=== PATIENT | male | born 1980 | race Caucasian/White ===

== ENCOUNTER 2021-02-19 16:19 | Emergency (ER) | payer SELFPAY ==
[~2021-02-19] VITALS: Ht 165.1 cm; Wt 63.5 kg
[2021-02-19] MEDS ORDERED: morphine INJ 10 MG/ML 1ML (SYR OR VIAL) IVP STA (16:24)
[2021-02-19 16:33] LABS: BASOPHILS % (AUTO) 0 % (0-10); EOSINOPHILS # (AUTO) 0.1 10^3/uL (0.0-0.3); EOSINOPHILS % (AUTO) 2 % (0-10); HEMATOCRIT 41 % (40-54); HEMOGLOBIN 14.2 g/dL (13.3-17.7); LYMPHOCYTES # (AUTO) 1.8 10^3/uL (1.0-4.0); LYMPHOCYTES % (AUTO) 31 % (12-44); MEAN CORPUSCULAR HEMOGLOBIN 30 pg (25-34); MEAN CORPUSCULAR HGB CONC 34 g/dL (32-36); MEAN CORPUSCULAR VOLUME 89 fL (80-99); MEAN PLATELET VOLUME 9.8 fL (9.0-12.2); MONOCYTES # (AUTO) 0.6 10^3/uL (0.0-1.0); MONOCYTES % (AUTO) 11 % (0-12); NEUTROPHILS # (AUTO) 3.3 10^3/uL (1.8-7.8); NEUTROPHILS % (AUTO) 56 % (42-75); PLATELET COUNT 242 10^3/uL (130-400); WHITE BLOOD COUNT 5.9 10^3/uL (4.3-11.0)
--- NOTE | 2021-02-19 16:35 | ED Chest Pain ---
General Stated Complaint: CHEST PAIN Source: patient Exam Limitations: no limitations History of Present Illness Date Seen by Provider: Feb 19, 2021 Time Seen by Provider: 16:14 Initial Comments Patient to the ER by EMS from home with chief complaint that he just arrived home after driving from his work and [place] and has been having 2 days of chest pressure and discomfort radiating down his left arm with some numbness and tingling. It was getting worse so he called EMS. He has no personal medical history because he does not follow with a doctor. He has a brother who had a heart attack at age 50 as well as a father with heart disease early onset. He smokes about half a pack to 1 pack of cigarettes per day. He has a greater than 10-year ago history of using cocaine and other stimulants. He still drinks beer on occasion. He does not know of any history of hypertension or hyperlipidemia. He does not have diabetes. He is not having any fevers chills cough shortness of air or worsening with exertion. He does not have diarrhea constipation nausea or vomiting. Pain is not worse with deep inspiration or pushing on the chest. EMS gave him 324 mg of aspirin and 2 doses of nitroglycerin which significantly dropped his pain down to a 4 out of 10 on arrival. Patient also states he had rheumatic heart fever when he was a [age] old. Allergies and Home Medications Allergies Coded Allergies: No Known Drug Allergies (Unverified , 02/19/21) Patient Home Medication List Home Medication List Reviewed: Yes Review of Systems Review of Systems Constitutional: No chills, No diaphoresis, No fever, No malaise EENTM: No Blurred Vision, No Double Vision Respiratory: Denies Cough, Denies Shortness of Air Cardiovascular: See HPI, Chest Pain; Denies Edema, Denies Irregular Heart Rate, Denies Lightheadedness Gastrointestinal: Denies Abdominal Pain, Denies Diarrhea, Denies Nausea Genitourinary: Denies Burning, Denies Discharge Musculoskeletal: No back pain, No joint pain All Other Systems Reviewed Negative Unless Noted: Yes Past Pkhsvph-Ixtuyj-Mouzca Hx Patient Social History Tobacco Use?: Yes Tobacco type used: Cigarettes Smoking Status: Current Everyday Smoker Use of E-Cig and/or Vaping dev: No Substance use?: Yes (Distant history greater than 10 years) Substance type: Other (Cocaine more than 10 years ago) Alcohol Use?: No Physical Exam Vital Signs Vital Signs - First Documented 02/19/21 16:19 Temp 36.7 Pulse 109 Resp 20 B/P (MAP) 115/77 (90) Pulse Ox 99 O2 Delivery Room Air Capillary Refill : Height, Weight, BMI Height: '" Weight: lbs. oz. kg; BMI Method: General Appearance: No Apparent Distress, WD/WN HEENT: PERRL/EOMI, TMs Normal, Normal ENT Inspection, Pharynx Normal, Moist Mucous Membranes Neck: Full Range of Motion, Normal Inspection Respiratory: Chest Non Tender, Lungs Clear, Normal Breath Sounds, No Accessory Muscle Use, No Respiratory Distress Cardiovascular: Regular Rate, Rhythm, No Edema, Normal Peripheral Pulses Gastrointestinal: Normal Bowel Sounds, Non Tender, Soft Extremity: Normal Capillary Refill, Normal Inspection, Normal Range of Motion, Non Tender, No Calf Tenderness, No Pedal Edema Neurologic/Psychiatric: Alert, Oriented x3 Skin: Normal Color, Warm/Dry Progress/Results/Core Measures Results/Orders Lab Results Laboratory Tests Test 02/19/21 16:24 02/19/21 17:33 Range/Units White Blood Count 5.9 4.3-11.0 10^3/uL Red Blood Count 4.68 4.30-5.52 10^6/uL Hemoglobin 14.2 13.3-17.7 g/dL Hematocrit 41 40-54 % Mean Corpuscular Volume 89 80-99 fL Mean Corpuscular Hemoglobin 30 25-34 pg Mean Corpuscular Hemoglobin Concent 34 32-36 g/dL Red Cell Distribution Width 12.5 10.0-14.5 % Platelet Count 242 130-400 10^3/uL Mean Platelet Volume 9.8 9.0-12.2 fL Immature Granulocyte % (Auto) 0 % Neutrophils (%) (Auto) 56 42-75 % Lymphocytes (%) (Auto) 31 12-44 % Monocytes (%) (Auto) 11 0-12 % Eosinophils (%) (Auto) 2 0-10 % Basophils (%) (Auto) 0 0-10 % Neutrophils # (Auto) 3.3 1.8-7.8 10^3/uL Lymphocytes # (Auto) 1.8 1.0-4.0 10^3/uL Monocytes # (Auto) 0.6 0.0-1.0 10^3/uL Eosinophils # (Auto) 0.1 0.0-0.3 10^3/uL Basophils # (Auto) 0.0 0.0-0.1 10^3/uL Immature Granulocyte # (Auto) 0.0 0.0-0.1 10^3/uL Prothrombin Time 13.1 12.2-14.7 SEC INR Comment 1.0 0.8-1.4 Activated Partial Thromboplast Time 25 24-35 SEC D-Dimer < 0.27 0.00-0.49 UG/ML Sodium Level 135 135-145 MMOL/L Potassium Level 3.8 3.6-5.0 MMOL/L Chloride Level 103 98-107 MMOL/L Carbon Dioxide Level 20 L 21-32 MMOL/L Anion Gap 12 5-14 MMOL/L Blood Urea Nitrogen 12 7-18 MG/DL Creatinine 0.80 0.60-1.30 MG/DL Estimat Glomerular Filtration Rate 106 BUN/Creatinine Ratio 15 Glucose Level 96 70-105 MG/DL Calcium Level 9.3 8.5-10.1 MG/DL Corrected Calcium 9.3 8.5-10.1 MG/DL Magnesium Level 1.9 1.6-2.4 MG/DL Total Bilirubin 0.5 0.1-1.0 MG/DL Aspartate Amino Transf (AST/SGOT) 30 5-34 U/L Alanine Aminotransferase (ALT/SGPT) 38 0-55 U/L Alkaline Phosphatase 57 40-136 U/L Myoglobin 30.2 10.0-92.0 NG/ML Troponin I < 0.028 <0.028 NG/ML B-Type Natriuretic Peptide < 10.0 <100.0 PG/ML Total Protein 8.1 6.4-8.2 GM/DL Albumin 4.0 3.2-4.5 GM/DL Lipase 19 8-78 U/L My Orders Orders - MIKEL HUDSON Cbc With Automated Diff (02/19/21 16:24) Magnesium (02/19/21 16:24) Chest 1 View, Ap/Pa Only (02/19/21 16:24) Ekg Tracing (02/19/21 16:24) Comprehensive Metabolic Panel (02/19/21 16:24) Myoglobin Serum (02/19/21 16:24) Protime With Inr (02/19/21 16:24) Partial Thromboplastin Time (02/19/21 16:24) O2 (02/19/21 16:24) Monitor-Rhythm Ecg Trace Only (02/19/21 16:24) Lipid Panel (02/20/21 06:00) Ed Iv/Invasive Line Start (02/19/21 16:24) Lipase (02/19/21 16:24) BNP (02/19/21 16:24) Fibrin Degradation Products (02/19/21 16:24) Troponin I (02/19/21 16:24) Morphine Injection (Morphine Injection (02/19/21 16:24) Troponin I (02/19/21 18:30) Vital Signs/I&O 02/19/21 16:19 Temp 36.7 Pulse 109 Resp 20 B/P (MAP) 115/77 (90) Pulse Ox 99 O2 Delivery Room Air Progress Progress Note #1: Time: 16:35 Progress Note Plan to give him 2 mg morphine and check a troponin. If it is negative we will do a 2-hour delta troponin since this is been going on for 2 days although it has progressed recently. We will then set him up for follow-up with cardiology if he is pain-free. Pericarditis/myocarditis is possible. Is not seem to have any chest wall pain. With a negative troponin his heart score will be 2 points which is low risk. He is having no tachycardia, dyspnea or hemoptysis. No evidence of a DVT and PE is not high on our differential. 0.0 points Well's score. Low risk group: 1.3% chance of PE in an ED population. A D-dimer would rule out but a positive D- dimer is meaningless. Progress Note #2: Time: 17:20 Progress Note Patient is now pain-free. He is resting comfortably with his friend. We are g oing to do a delta troponin at 1830. 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 We have encouraged him to follow-up with cardiology within 1 to 2 weeks. We will give him a local wood room hand information. Initial ECG Impression Date: Feb 19, 2021 Initial ECG Impression Time: 16:21 Initial ECG Rate: 92 Initial ECG Rhythm: Normal Sinus Initial ECG Intervals: Normal Initial ECG Impression: Normal Initial ECG Comparisson: No Previous ECG Available Comment Normal sinus rhythm with no clinically relevant ST elevation or depression Diagnostic Imaging Diagonstic Imaging: Xray Plain Films/CT/US/NM/MRI: chest Comments NAME: PRAKASH EDMOND [facility] REC#: [id number] PT STATUS: REG ER : 1980 PHYSICIAN: MIKEL HUDSON MD ADMIT DATE: 02/19/21/ER Draft Date of Exam:02/19/21 CHEST 1 VIEW, AP/PA ONLY HISTORY: Chest pain, left arm numbness and shortness of air. COMPARISON: None TECHNIQUE: Single frontal view of the chest. FINDINGS: Lung volumes are normal. No consolidation is seen. There is no pleural effusion or pneumothorax. The cardiac silhouette is normal in size. IMPRESSION: 1. No acute pulmonary abnormality. Dictated on workstation # [id number] Dict: 02/19/211650 Trans: 02/19/211652 CVB [id number] Interpreted by: PAZ FAIRCHILD MD Electronically signed by: Reviewed: Reviewed by Me Transfer of Care Time: 18:00 Care transferred to: Dr. Escobar Departure Impression Primary Impression: Chest pain Qualified Codes: R07.9 - Chest pain, unspecified Disposition: 01 HOME, SELF-CARE Condition: Stable Departure-Patient Inst. Referrals: PARTH RAMON JR, MD Patient Instructions: Chest Pain (DC) Add. Discharge Instructions: I recommend you follow-up with a wood room hand in the next 1 to 2 weeks. Return to the nearest ER promptly if you experience significant chest pain, shortness of air or other worrisome symptoms Work/School Note: Work Release Form Date Seen in the Emergency Department: Feb 19, 2021 Return to Work: Feb 20, 2021 Restrictions: No Restrictions MIKEL HUDSON Feb 19, 2021 16:35
[2021-02-19 16:47] LABS: POTASSIUM 3.8 MMOL/L (3.6-5.0)
[2021-02-19 16:48] LABS: CALCIUM 9.3 MG/DL (8.5-10.1)
[2021-02-19 16:49] LABS: TOTAL PROTEIN 8.1 GM/DL (6.4-8.2)
[2021-02-19 16:51] LABS: BILIRUBIN,TOTAL 0.5 MG/DL (0.1-1.0)
[2021-02-19 16:53] LABS: CREATININE SERUM 0.8 MG/DL (0.60-1.30); PROTHROMBIN TIME PATIENT 13.1 SEC (12.2-14.7)
--- NOTE | 2021-02-19 16:53 | Diagnostic Imaging Report ---
HISTORY: Chest pain, left arm numbness and shortness of air. COMPARISON: None TECHNIQUE: Single frontal view of the chest. FINDINGS: Lung volumes are normal. No consolidation is seen. There is no pleural effusion or pneumothorax. The cardiac silhouette is normal in size. IMPRESSION: 1. No acute pulmonary abnormality. Dictated by: Dictated on workstation # [id number]
[2021-02-19 16:56] LABS: MAGNESIUM 1.9 MG/DL (1.6-2.4)
[2021-02-19 20:15] VITALS: BP 133/94
== END 2021-02-19 20:18 | disposition home or self-care (01) ==
LOC: ER 16:22
DX: R07.9 Chest pain, unspecified (principal); F17.210 Nicotine dependence, cigarettes, uncomplicated
CPT/HCPCS: 36415; 71045; 80053; 83690; 83735; 83874; 83880; 84484; 85025; 85379; 85610; 85730; 93005; 93041